=== PATIENT | female | born 1960 | race Caucasian/White ===

== ENCOUNTER 2018-03-26 20:07 | Observation (INO) | payer OTHER ==
[~2018-03-26] VITALS: Ht 172.7 cm; Wt 72.6 kg
[2018-03-26 20:53] LABS: BASOPHILS ABSOLUTE AUTO 0.07 K/mm3 (0.00-0.23); BASOPHILS PERCENT AUTO 1 % (0-2); EOSINOPHILS ABSOLUTE AUTO 0.09 K/mm3 (0.00-0.68); EOSINOPHILS PERCENT AUTO 1 % (0-6); Hematocrit 37.4 % (33.0-51.0); Hemoglobin 12.7 g/dL (11.5-16.0); IMMATURE GRAN ABSOLUTE AUTO 0.01 K/mm3 (0.00-0.10); IMMATURE GRAN PERCENT AUTO 0 % (0-1); LYMPHOCYTES ABSOLUTE AUTO 1.59 K/mm3 (0.84-5.20); LYMPHOCYTES PERCENT AUTO 19 % (21-46); MONOCYTES ABSOLUTE AUTO 0.66 K/mm3 (0.16-1.47); MONOCYTES PERCENT AUTO 8 % (4-13); Mean Corpuscular HGB 29.7 pg (26.0-34.0); Mean Corpuscular Volume 88 fL (80-100); Mean Platelet Volume 9.2 fL (9.1-12.4); NEUTROPHILS ABSOLUTE AUTO 6.18 K/mm3 (1.96-9.15); NEUTROPHILS PERCENT AUTO 72 % (41-73); Platelet Count 268 K/mm3 (150-400); RDW Coefficient Variation 12.4 % (11.7-14.2); RDW Standard Deviation 40.1 fL (35.1-46.3); Red Blood Cell Count 4.27 M/mm3 (3.80-5.20)
[2018-03-26 21:13] LABS: Albumin, Blood 3.9 g/dL (3.4-5.0); Albumin/Globulin Ratio 1.3 (0.8-1.8); Bilirubin, Total 0.3 mg/dL (0.1-1.0); Calcium, Blood 8.7 mg/dL (8.5-10.1); Creatinine, Blood 1.05 mg/dL (0.40-1.00); Globulin, Blood 2.9 g/dL (2.2-4.0); Total Protein, Blood 6.8 g/dL (6.4-8.2)
== END 2018-03-27 14:16 | disposition home or self-care (01) ==
LOC: ER 20:07 → EOR 20:08
PROVIDERS: Emergency Medicine
DX: F41.9 Anxiety disorder, unspecified (principal); R41.0 Disorientation, unspecified; R00.0 Tachycardia, unspecified; F15.90 Other stimulant use, unspecified, uncomplicated; F43.10 Post-traumatic stress disorder, unspecified; F32.9 Major depressive disorder, single episode, unspecified; F29 Unspecified psychosis not due to a substance or known physiological condition; F12.10 Cannabis abuse, uncomplicated
CPT/HCPCS: 80053; 85025; 96360; 96372; 99285-25; G0378; J1630; J2250; J7030